=== PATIENT | female | born 1960 ===

== ENCOUNTER 2016-08-07 11:41 | Emergency (ER) | payer MEDICARE ==
[2016-08-07 11:46] VITALS: BMI 25.0
[2016-08-07 11:50] VITALS: TEMP 99.1
[2016-08-07] MEDS ORDERED: Albuterol-Ipratrop 3 mg / 0.5 (3 ml) UD IH STA (12:27)
[2016-08-07] MEDS ORDERED: Promethazine DM 6.25 mg-15 mg/5 ml Syrup PO STA (12:27)
--- NOTE | 2016-08-07 12:27 | ED PDOC ---
Arrival/HPI - General Historian: Patient - History of Present Illness Context: Home <Asif Damon P - Last Filed: 08/15/16 16:19> <Pat Dumont - Last Filed: 08/16/16 08:56> - General Chief Complaint: ENT Problem Time Seen by Provider: 08/07/16 12:26 - History of Present Illness Narrative History of Present Illness (Text): 08/07/16 12:26 This 56 yo female presents to this ED c/o sore throat, ear pain, and cough x 3 days. Denies sob, cp, abdominal pain, weakness, paresthesias, diplopia, dysarthria, dysphagia, or abnormal gait. 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 - HEENT Hx HEENT Disorder: Yes (READING GLASSES) Hx Cataracts: Yes (LASER SURGERY) Hx Deafness: Yes (L) - Renal Hx Renal Disorder: No - Endocrine/Metabolic Hx Endocrine Disorders: Yes (DM BORDERLINE) - Hematological/Oncological Hx Blood Disorders: Yes Hx Anemia: Yes - Musculoskeletal/Rheumatological Hx Musculoskeletal Disorders: No Hx Falls: No - Gastrointestinal Hx Gastrointestinal Disorders: No - Genitourinary/Gynecological Hx Genitourinary Disorders: Yes (PARTIAL HYSTERECTOMY,TUBAL LIGATION) - Psychiatric Hx Depression: Yes Hx Substance Use: No - Surgical History Hx Appendectomy: Yes Hx Cardiac Catheterization: Yes Hx Hysterectomy: Yes (PARTIAL) - Anesthesia Hx Anesthesia: Yes Hx Anesthesia Reactions: No Hx Malignant Hyperthermia: No - Suicidal Assessment Feels Threatened In Home Enviroment: No <Asif Damon - Last Filed: 08/15/16 16:19> Family/Social History - Physician Review Nursing Documentation Reviewed: Yes Family/Social History: No Known Family HX Smoking Status: Never Smoked Hx Alcohol Use: No Hx Substance Use: No Hx Substance Use Treatment: No <Asif Damon - Last Filed: 08/15/16 16:19> Allergies/Home Meds <Damon,Nahim P - Last Filed: 08/15/16 16:19> <Pat Dumont A - Last Filed: 08/16/16 08:56> Allergies/Adverse Reactions: Allergies Penicillins Allergy (Mild, Verified 08/07/16 11:46) ANGIOEDEMA;ITCHING Review of Systems - Review of Systems Constitutional: Normal. absent: Fatigue, Weight Change, Fevers Eyes: Normal ENT: Sore Throat, Other (ear pain) Respiratory: Cough. absent: SOB, Wheezing Cardiovascular: Normal. absent: Chest Pain, Palpitations Gastrointestinal: Normal. absent: Abdominal Pain, Diarrhea, Nausea, Vomiting Genitourinary Female: Normal. absent: Dysuria, Frequency Musculoskeletal: Normal Skin: Normal. absent: Rash Neurological: Normal. absent: Headache Endocrine: Normal Hemo/Lymphatic: Normal Psychiatric: Normal <Asif Damon P - Last Filed: 08/15/16 16:19> Physical Exam Temperature: Afebrile Blood Pressure: Normal Pulse: Regular Respiratory Rate: Normal Appearance: Positive for: Well-Appearing, Non-Toxic, Comfortable Pain Distress: None Mental Status: Positive for: Alert and Oriented X 3 - Systems Exam Head: Present: Atraumatic, Normocephalic Pupils: Present: PERRL Extroacular Muscles: Present: EOMI Conjunctiva: Present: Normal Ears: Present: Normal, NORMAL TM, Normal Canal. No: Erythema, TM Bulging, Fluid , TM Perf Mouth: Present: Moist Mucous Membranes Pharnyx: Present: Normal. No: ERYTHEMA, EXUDATE, TONSILS ENLARGED Nose (External): Present: Atraumatic Nose (Internal): Present: Normal Inspection Neck: Present: Normal Range of Motion, Trachea Midline. No: Meningeal Signs Respiratory/Chest: Present: Clear to Auscultation, Good Air Exchange. No: Respiratory Distress, Accessory Muscle Use, Decreased Breath Sounds, Rales, Retracting, Rhonchi, Tachypneic Cardiovascular: Present: Regular Rate and Rhythm, Normal S1, S2. No: Murmurs Abdomen: Present: Normal Bowel Sounds. No: Tenderness, Distention, Peritoneal Signs Back: Present: Normal Inspection. No: CVA Tenderness Upper Extremity: Present: Normal Inspection, NORMAL PULSES, Erythema. No: Cyanosis, Edema Lower Extremity: Present: Normal Inspection, Normal ROM, Neurovascularly Intact , Capillary Refill < 2 s. No: Edema, CALF TENDERNESS Neurological: Present: GCS=15, CN II-XII Intact, Speech Normal, Motor Func Grossly Intact, Normal Sensory Function, Normal Cerebellar Funct, Gait Normal, Memory Normal Skin: Present: Warm, Dry, Normal Color. No: Rashes Psychiatric: Present: Alert, Oriented x 3, Normal Insight, Normal Concentration <Damon,Nahim P - Last Filed: 08/15/16 16:19> Medical Decision Making Re-evaluation Time: 14:26 Reassessment Condition: Re-examined, Improved <Damon,Nahim P - Last Filed: 08/15/16 16:19> <Pat Dumont - Last Filed: 08/16/16 08:56> ED Course and Treatment: 08/07/16 13:00 On revaluation patient stated after DuoNeb, she developed difficulty speaking and generalized weakness. ER attending was called. Dr. Dumont evaluated patient. Patient stated symptoms has been improving. Code Stroke was initiated (Damon,Nahim P) 08/07/16 13:26 On my arrival, patient is complaining of difficulty speaking. She is able to phonate normally for moment and then switches between saying she can't speak and whispering and speaking normally. She has normal ROM and strength of arms, but then reports she has weakness of her legs but then has normal gait and is ambulating around the ED without issue. This presentation does not seem consistent with any organic neurologic condition- as tia would be intermittent but not show upper and lower division with normal gait and cva who show some objective deficit. When I am able to get the patient to take deep breaths and calm her breathing she is able to move all extremities. She has no facial droop and is able to speak normally during these times. Presentation seems more consistent with anxiety. FS:111. EKG shows NSR at 84bpm with normal intervals and no ST changes. CT head negative for hemorrhage or ischemia. I called PMD Dr. Farfan who is aware of patient. He reports that she has had extensive and recent negative workup for CVA and can be discharged with aspirin. Patient reports that she thinks that this was a side effect of the nebulizer and on reevaluation she reports that she feels better and wants to go home. (Pat Dumont) - Lab Interpretations Lab Results: 08/07/16 13:10 08/07/16 13:10 Lab Results 08/07/16 13:14: POC Glucose (mg/dL) 111 H 08/07/16 13:10: Sodium 142, Potassium 3.0 L, Chloride 104, Carbon Dioxide 28, Anion Gap 13, BUN 16, Creatinine 0.8, Est GFR ( Amer) > 60, Est GFR (Non- Af Amer) > 60, Random Glucose 106, Calcium 9.3, Total Bilirubin 0.7, AST 34, ALT 43, Alkaline Phosphatase 157 H, Lactate Dehydrogenase 467, Total Creatine Kinase 167, Troponin I < 0.01, Total Protein 8.8 H, Albumin 4.7, Globulin 4.0, Albumin/Globulin Ratio 1.2, Triglycerides 229 H, Cholesterol 156, LDL Cholesterol Direct 77, HDL Cholesterol 40 08/07/16 13:10: PT 10.5, INR 0.97, APTT 27.7 08/07/16 13:10: WBC 12.4 H D, RBC 4.61, Hgb 13.8, Hct 39.6, MCV 85.9, MCH 29.9, MCHC 34.8, RDW 12.9, Plt Count 216, MPV 10.3, Gran % 51.8, Lymph % (Auto) 38.6 H , [place] % (Auto) 5.8, Eos % (Auto) 3.6, Baso % (Auto) 0.2, Gran # 6.38, Lymph # 4.8 H, [place] # 0.7 H, Eos # 0.5, Baso # 0.03 08/07/16 13:00: Urine Color Yellow, Urine Appearance Clear, Urine pH 7.5, Ur Specific [place] 1.010, Urine Protein Negative, Urine Glucose (UA) Negative, Urine Ketones Negative, Urine Blood Small H, Urine Nitrate Negative, Urine Bilirubin Negative, Urine Urobilinogen 0.2, Ur Leukocyte Esterase Negative, Urine RBC 0 - 2, Urine WBC 0 - 2, Ur Epithelial Cells 6 - 8, Urine Bacteria Small - RAD Interpretation Narrative RAD Interpretations (Text): 08/07/16 14:26 Accession No. : [id number] Patient Name / ID : NIMO BALBUENA / [id number] Exam Date : 08/07/2016 12:24:10 ( Approved ) Study Comment : Sex / Age : F / 56Y Creator : Misael Parson MD Dictator : Misael Parson MD Stereo Equipment Installer : Stockroom Keeper : Misael Parson MD Approver2 : Report Date : 08/07/2016 13:37:11 My Comment : HISTORY: cough COMPARISON: No prior. TECHNIQUE: Chest PA and lateral FINDINGS: LUNGS: No active pulmonary disease. PLEURA: No significant pleural effusion identified. No pneumothorax apparent. CARDIOVASCULAR: Normal. OSSEOUS STRUCTURES: There appears to be a mild pectus excavatum minor multilevel degenerative spondylosis of the thoracic spine VISUALIZED UPPER ABDOMEN: Normal. OTHER FINDINGS: None. IMPRESSION: No active disease. (Asif Damon) Radiology Orders: 08/07/16 12:28 CHEST TWO VIEWS (PA/LAT) [RAD] Stat 08/07/16 13:06 HEAD W/O (CODE STROKE) [CT] Stat - Medication Orders Current Medication Orders: Discontinued Medications Albuterol/Ipratropium (Duoneb 3 Mg/0.5 Mg (3 Ml) Ud) 3 ml IH STAT STA Stop: 08/07/16 12:28 Last Admin: 08/07/16 12:32 Dose: 3 ml Aspirin (Aspirin Chewable) 324 mg PO STAT STA Stop: 08/07/16 13:29 Last Admin: 08/07/16 13:41 Dose: 324 mg Potassium Chloride (Potassium Chloride Oral Soln) 60 meq PO STAT STA Stop: 08/07/16 14:25 Last Admin: 08/07/16 15:00 Dose: 60 meq Promethazine HCl/Dextromethorphan (Phenergan Dm Syrup) 5 ml PO STAT STA Stop: 08/07/16 12:28 Last Admin: 08/07/16 12:38 Dose: 5 ml NIHSS Scale ([place]) Time Performed: 13:25 - How Severe is the Stoke Baseline Level of Consciousness: 0=Alert LOC to Questions: 0=Both comments correct LOC to commands: 0=Obeys both correctly Best Gaze: 0=Normal Visual: 0=No visual loss Facial: 0=Normal Motor Arm - Left: 0=No drift Motor Arm - Right: 0=No drift Motor Leg - Left: 0=No drift Motor Leg - Right: 0=No drift Limb Ataxia: 0=Absent Sensory: 0=Normal Best Language: 0=No aphasia Dysarthia: 0=Normal articulation Extinction & Inattention (Neglect): 0=Normal, no object Score: 0 Risk Level: No Stroke Risk <Pat Dumont - Last Filed: 08/16/16 08:56> rTPA Inclusion/Exclusion - Refusal of Treatment Patient Refused Treatment: No - Inclusion Criteria for Altepase Patient is 18 years or Older: Yes The Clinical Diagnosis of Ischemic Stroke That is Causing a Potentially Disabling Neurological Deficit: No Time of Onset is Well Established to be Less Than 270 Minute Before Treatment Would Begin: Yes Risk/Benefit Discussed With Patient/Family Member Present: No <Pat Dumont - Last Filed: 08/16/16 08:56> Disposition/Present on Arrival - Present on Arrival Any Indicators Present on Arrival: No History of DVT/PE: No History of Uncontrolled Diabetes: No Urinary Catheter: No History of Decub. Ulcer: No History Surgical Site Infection Following: None - Disposition Have Diagnosis and Disposition been Completed?: Yes Disposition Time: 14:27 Patient Plan: Discharge <Asif Damon - Last Filed: 08/15/16 16:19> <Pat Dumont - Last Filed: 08/16/16 08:56> - Disposition Diagnosis: Sore throat, Cough Disposition: HOME/ ROUTINE Condition: IMPROVED Discharge Instructions (ExitCare): Upper Respiratory Infection (ED) Additional Instructions: Call private doctor for follow up visit ion 1-2 days. Take medication as instructed. Return to emergency if symptoms worsen. Prescriptions: Promethazine DM [Dextromethorphan/Promethazine 15 MG/5 Ml-6.25] 5 ml PO Q6H PRN #60 ml PRN Reason: Cough Referrals: Blair Farfan, [Primary Care Provider] - Follow up with primary Forms: WORK NOTE
[2016-08-07 13:17] LABS: ADD MANUAL DIFF? NO
[2016-08-07 13:23] LABS: BASO # 0.03 K/mm3 (0.0-2.0); BASO % 0.2 % (0.0-3.0); EOS # 0.5 (0.0-0.7); EOS % 3.6 % (1.5-5.0); GRAN # 6.38 (1.4-6.5); GRAN % 51.8 % (50.0-68.0); HEMATOCRIT 39.6 % (36.0-48.0); LYMPH # 4.8 (1.2-3.4); LYMPH % 38.6 % (22.0-35.0); MEAN CELL VOLUME 85.9 fL (80.0-105.0); MEAN CORPUSCULAR HEMOGLOBIN 29.9 pg (25.0-35.0); MEAN CORPUSCULAR HGB CONC 34.8 g/dl (31.0-37.0); MEAN PLATELET VOLUME 10.3 fl (7.0-11.0); MONO # 0.7 (0.1-0.6); MONO % 5.8 % (1.0-6.0); PLATELET COUNT 216 10^3/uL (120.0-450.0); RED CELL DISTRIBUTION WIDTH 12.9 % (11.5-14.5); WHITE BLOOD COUNT 12.4 10^3/ul (4.5-11.0)
--- NOTE | 2016-08-07 13:26 | CT ---
PROCEDURE: CT HEAD WITHOUT CONTRAST. HISTORY: dysarthria, facial numbness COMPARISON: 05/26/2015 TECHNIQUE: Axial computed tomography images were obtained through the head/brain without intravenous contrast. Radiation dose: Total exam DLP = 733 mGy-cm. This CT exam was performed using one or more of the following dose reduction techniques: Automated exposure control, adjustment of the mA and/or kV according to patient size, and/or use of iterative reconstruction technique. FINDINGS: HEMORRHAGE: No intracranial hemorrhage. BRAIN: No mass effect or edema. No atrophy or chronic microvascular ischemic changes. VENTRICLES: Unremarkable. No hydrocephalus. CALVARIUM: Unremarkable. PARANASAL SINUSES: Unremarkable as visualized. No significant inflammatory changes. MASTOID AIR CELLS: Unremarkable as visualized. No inflammatory changes. OTHER FINDINGS: None. IMPRESSION: No acute findings
[2016-08-07 13:32] LABS: INR 0.97 (0.93-1.08); PARTIAL THROMBOPLASTIN TIME 27.7 Seconds (23.7-30.8)
--- NOTE | 2016-08-07 13:38 | RAD ---
HISTORY: cough COMPARISON: No prior. TECHNIQUE: Chest PA and lateral FINDINGS: LUNGS: No active pulmonary disease. PLEURA: No significant pleural effusion identified. No pneumothorax apparent. CARDIOVASCULAR: Normal. OSSEOUS STRUCTURES: There appears to be a mild pectus excavatum minor multilevel degenerative spondylosis of the thoracic spine VISUALIZED UPPER ABDOMEN: Normal. OTHER FINDINGS: None. IMPRESSION: No active disease.
[2016-08-07 13:41] LABS: ALB/GLOB RATIO 1.2 (1.1-1.8); ALKALINE PHOSPHATASE 157 U/L (38-133); ALT/SGPT 43 U/L (7-56); AST/SGOT 34 U/L (15-39); BILIRUBIN,TOTAL 0.7 mg/dL (0.2-1.3); BLOOD UREA NITROGEN 16 mg/dL (7-21); CALCIUM 9.3 mg/dL (8.4-10.5); CARBON DIOXIDE 28 mmol/L (21-33); CHLORIDE 104 mmol/L (98-107); CHOLESTEROL 156 mg/dL (130-200); GFR AFRICAN-AMERICAN > 60; GLUCOSE,RANDOM 106 mg/dL (70-110); SODIUM 142 mmol/L (132-148); TOTAL PROTEIN 8.8 g/dL (5.8-8.3)
[2016-08-07 13:46] LABS: PH,URINE 7.5 (4.7-8.0); URINE BILIRUBIN NEGATIVE (NEGATIVE); URINE BLOOD SMALL (NEGATIVE); URINE GLUCOSE (UA) NEGATIVE (NEGATIVE); URINE KETONE NEGATIVE (NEGATIVE); URINE LEUKOCYTE ESTERASE NEGATIVE Leu/uL (NEGATIVE); URINE PROTEIN NEGATIVE mg/dL (<30 mg/dL); URINE UROBILINOGEN 0.2 E.U./dL (<1 E.U./dL)
[2016-08-07 13:49] LABS: URINE APPEARANCE CLEAR (CLEAR); URINE COLOR YELLOW (YELLOW)
[2016-08-07 13:53] LABS: TROPONIN I < 0.01 ng/mL
[2016-08-07 14:12] LABS: URINE BACTERIA SMALL (NEG); URINE RBC 0 - 2 /hpf (0-2); URINE WBC 0 - 2 /hpf (0-6)
[2016-08-07] MEDS ORDERED: Potassium Chloride 20 mEq/15 ml LIQ UD PO STA (14:24)
[2016-08-07 14:50] VITALS: BP 123/80; PULSE 83; RESP 17; O2SAT 99
--- NOTE | 2016-08-07 20:17 | CARD ---
APPROVED REPORT EKG Measurement Heart [id number] <Conclusion> Normal sinus rhythm Normal ECG
== END 2016-08-07 15:07 | disposition home or self-care (01) ==
LOC: ED 11:41
DX: J02.9 Acute pharyngitis, unspecified (principal); R05 Cough; I10 Essential (primary) hypertension; J45.909 Unspecified asthma, uncomplicated; Z87.01 Personal history of pneumonia (recurrent)

== ENCOUNTER 2018-04-03 10:48 | Outpatient (CLI) | payer MEDICARE | END 2018-04-03 10:49 | disposition home or self-care (01) | LOC: RAD 10:48 ==

== ENCOUNTER 2018-06-07 11:40 | Observation (INO) | payer MEDICARE ==
[2018-06-07 11:42] VITALS: BMI 28.3
[2018-06-07] MEDS ORDERED: Sodium Chloride 0.9% 1,000 ML IV SCH ×2 (12:00→17:13)
--- NOTE | 2018-06-07 12:00 | EDPD ---
HPI Stroke - General Time Seen by Provider: 06/07/18 11:59 Chief Complaint: Dizziness/Lightheaded Historian: Patient - History of Present Illness Narrative History of Present Illness (Free Text): 06/07/18 12:00 A 57 year old female, whose past medical history includes TIA, presents to the emergency department complaining of right face and right hand numbness occurring 20 minutes prior to arrival. Patient reports associated generalized weakness, change in vision, and slurred speech. Patient notes she is compliant with outpatient medication. Patient denies any fever, chest pain, shortness of breath, or any other complaints. PMD: Dr. Farfan Onset:: Hours (20 minutes) Timing: Constant Context: Sitting Associated Symptoms: Visual - Location Location: Speech rTPA Inclusion/Exclusion - Refusal of Treatment Patient Refused Treatment: No - Inclusion Criteria for Altepase Patient is 18 years or Older: Yes The Clinical Diagnosis of Ischemic Stroke That is Causing a Potentially Disabling Neurological Deficit: No Time of Onset is Well Established to be Less Than 270 Minute Before Treatment Would Begin: Yes Risk/Benefit Discussed With Patient/Family Member Present: No Past Medical History - Provider Review Nursing Documentation Reviewed: Yes - Infectious Disease Hx of Infectious Diseases: None - Cardiac Hx Hypertension: Yes - Pulmonary Hx Respiratory Disorders: Yes Hx Asthma: Yes Hx Bronchitis: Yes Hx Pneumonia: Yes - Neurological Hx Neurological Disorder: Yes (NEUROPATHY) Hx Dizziness: Yes Other/Comment: 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 - HEENT Hx HEENT Disorder: Yes (READING GLASSES) Hx Cataracts: Yes (LASER SURGERY) Hx Deafness: Yes (L) - Renal Hx Renal Disorder: No - Endocrine/Metabolic Hx Endocrine Disorders: Yes (DM BORDERLINE) - Hematological/Oncological Hx Blood Disorders: Yes Hx Anemia: Yes - Musculoskeletal/Rheumatological Hx Musculoskeletal Disorders: No Hx Falls: No - Gastrointestinal Hx Gastrointestinal Disorders: No - Genitourinary/Gynecological Hx Genitourinary Disorders: Yes (PARTIAL HYSTERECTOMY,TUBAL LIGATION) - Psychiatric Hx Depression: Yes Hx Substance Use: No - Surgical History Hx Appendectomy: Yes Hx Cardiac Catheterization: Yes Hx Hysterectomy: Yes (PARTIAL) - Anesthesia Hx Anesthesia: Yes Hx Anesthesia Reactions: No Hx Malignant Hyperthermia: No - Suicidal Assessment Feels Threatened In Home Enviroment: No Family/Social History - Review Nursing documentation reviewed.: Yes Allergies/Home Meds Allergies/Adverse Reactions: Allergies Penicillins Allergy (Mild, Verified 08/07/16 11:46) ANGIOEDEMA;ITCHING Review of Systems - Physician Review All systems were reviewed & negative as marked: Yes - Review of Systems Constitutional: absent: Fevers Eyes: Vision Changes Respiratory: absent: SOB Cardiovascular: absent: Chest Pain Neurological: Speech Changes (slurred speech), Other (right hand anad right face numbness; generalized weakness) ED Stroke Physical Exam Vital Signs Reviewed: Yes Vital Signs Temp Pulse Resp BP Pulse Ox 06/07/18 11:48 98.3 F 77 18 133/92 H 98 Temperature: Afebrile Blood Pressure: Hypertensive Pulse: Regular Respiratory Rate: Normal Pain Distress: None Mental Status: Positive for: Alert and Oriented X 3 - Systems Exam Head: Present: Atraumatic, Normocephalic Pupils: Present: PERRL Extroacular Muscles: Present: EOMI Conjunctiva: Present: Normal Neck: Present: Normal Range of Motion Respiratory/Chest: Present: Clear to Auscultation, Good Air Exchange. No: Respiratory Distress, Accessory Muscle Use Cardiovascular: Present: Regular Rate and Rhythm, Normal S1, S2. No: Murmurs Abdomen: Present: Normal Bowel Sounds. No: Tenderness, Distention, Peritoneal Signs Genitourinary/Pelvic Exam: Present: NI. No: C, E Back: Present: GCS, CN, SP Upper Extremity: Present: Normal ROM Lower Extremity: Present: Normal ROM Neurologic: Present: GCS=15, CN II-XII Intact, Speech Normal. No: Normal Sensory Function (decreased sensory to right face and right hand (as per patient)), Other (no slurred speech) Skin: Present: Warm, Dry, Normal Color. No: Rashes Lymphatic: Present: OX3, NI, NC Psychiatric: Present: Alert, Oriented x 3, Normal Insight, Normal Concentration Medical Decision Making ED Course and Treatment: 06/07/18 12:00 Impression: 57 year old female presenting to the emergency room complaining of right face and right hand numbness. Plan: -- Type and screen -- EKG -- Labs -- Stroke team consult -- Neurology consult -- MRI of brain -- Aspirin -- Potassium chloride -- IV fluids -- Reassess and disposition Prior Visits: Notes and results from previous visits were reviewed. Progress Notes: 06/07/18 11:58 CODE STROKE called. 06/07/18 12:[address] Cheatham who requested patient have a CTA, MRI, and request for admission. 06/07/18 12:04 EKG: Ordered, reviewed, and independently interpreted the EKG. Rate : 65 BPM Rhythm : SR Interpretation : 1st degree AV block, normal axis. 06/07/18 13:[address] Farfan who accepts patient under his service in telemetry. 06/07/18 13:34 Procedure: Head/Neck CTA Dictator: Orion Sosa Impression: Unremarkable CT angiography of the brain. Procedure: Head CT Dictator: Orion Sosa Impression: No acute intracranial findings. Procedure: Chest X-ray Dictator: Orion Sosa Impression: No active disease. - Critical Care Critical Care Minutes: 60 minutes - Scribe Statement The provider has reviewed the documentation as recorded by the Scribe Verónica Flores All medical record entries made by the Scribe were at my direction and personally dictated by me. I have reviewed the chart and agree that the record accurately reflects my personal performance of the history, physical exam, medical decision making, and the department course for this patient. I have also personally directed, reviewed, and agree with the discharge instructions and d isposition. NIHSS Scale ([place]) Time Performed: 11:58 - How Severe is the Stoke Baseline Level of Consciousness: 0=Alert LOC to Questions: 0=Both comments correct LOC to commands: 0=Obeys both correctly Best Gaze: 0=Normal Visual: 0=No visual loss Facial: 0=Normal Motor Arm - Left: 0=No drift Motor Arm - Right: 0=No drift Motor Leg - Left: 0=No drift Motor Leg - Right: 0=No drift Limb Ataxia: 0=Absent Sensory: 1=Mild to moderate loss Best Language: 0=No aphasia Dysarthia: 0=Normal articulation Extinction & Inattention (Neglect): 0=Normal, no object Score: 1 Risk Level: Minor Stroke Risk Disposition/Present on Arrival - Present on Arrival Any Indicators Present on Arrival: No History of DVT/PE: No History of Uncontrolled Diabetes: No Urinary Catheter: No History of Decub. Ulcer: No History Surgical Site Infection Following: None - Disposition Have Diagnosis and Disposition been Completed?: Yes Diagnosis: TIA (transient ischemic attack) Disposition: HOSPITALIZED Disposition Time: 13:25 Condition: GUARDED
[2018-06-07] MEDS ORDERED: Iohexol 350 MG/100 ML VIAL ONE (12:06)
[2018-06-07 12:15] LABS: BASO # 0.02 K/mm3 (0.0-2.0); BASO % 0.3 % (0.0-3.0); EOS # 0.2 (0.0-0.7); EOS % 2.8 % (1.5-5.0); HEMOGLOBIN 13.7 g/dL (12.0-16.0); LYMPH # 3.2 (1.2-3.4); LYMPH % 39.7 % (22.0-35.0); MEAN CELL VOLUME 86.8 fl (80.0-105.0); MEAN CORPUSCULAR HEMOGLOBIN 29.1 pg (25.0-35.0); MEAN CORPUSCULAR HGB CONC 33.5 g/dl (31.0-37.0); MEAN PLATELET VOLUME 10.3 fl (7.0-11.0); MONO # 0.7 (0.1-0.6); MONO % 8.5 % (1.0-6.0); RBC 4.71 10^6/uL (3.5-6.1); RED CELL DISTRIBUTION WIDTH 13.1 % (11.5-14.5)
[2018-06-07 12:21] LABS: ALB/GLOB RATIO 1.1 (1.1-1.8); ALBUMIN 4.4 g/dL (3.0-4.8); ALT/SGPT 28 U/L (7-56); AST/SGOT 30 U/L (14-36); BLOOD UREA NITROGEN 12 mg/dL (7-21); CALCIUM 9.2 mg/dL (8.4-10.5); GFR NON-AFRICAN AMERICAN > 60; HDL CHOLESTEROL 31 mg/dL (29-60); INR 1.04; PARTIAL THROMBOPLASTIN TIME 29.5 Seconds (26.9-38.3); PROTHROMBIN TIME 11.7 SECONDS (9.4-12.5)
--- NOTE | 2018-06-07 12:24 | CT ---
Date of service: 06/07/2018 PROCEDURE: CT HEAD WITHOUT CONTRAST. HISTORY: Code Stroke COMPARISON: 08/07/2016 TECHNIQUE: Axial computed tomography images were obtained through the head/brain without intravenous contrast. Radiation dose: Total exam DLP = 941.67 mGy-cm. This CT exam was performed using one or more of the following dose reduction techniques: Automated exposure control, adjustment of the mA and/or kV according to patient size, and/or use of iterative reconstruction technique. FINDINGS: HEMORRHAGE: No intracranial hemorrhage. BRAIN: No mass effect or edema. No atrophy or chronic microvascular ischemic changes. VENTRICLES: Unremarkable. No hydrocephalus. CALVARIUM: Unremarkable. PARANASAL SINUSES: Unremarkable as visualized. No significant inflammatory changes. MASTOID AIR CELLS: Unremarkable as visualized. No inflammatory changes. OTHER FINDINGS: None. IMPRESSION: No acute intracranial findings
[2018-06-07 12:31] LABS: LDL CHOLESTEROL 78 mg/dL (0-129)
[2018-06-07 12:34] LABS: TROPONIN I < 0.01 ng/mL
--- NOTE | 2018-06-07 13:10 | RAD ---
Date of service: 06/07/2018 HISTORY: Code Stroke COMPARISON: 04/03/2018 FINDINGS: LUNGS: No active pulmonary disease. PLEURA: No significant pleural effusion identified, no pneumothorax apparent. CARDIOVASCULAR: No aortic atherosclerotic calcification present. Normal cardiac size. No pulmonary vascular congestion. OSSEOUS STRUCTURES: No significant abnormalities. VISUALIZED UPPER ABDOMEN: Normal. OTHER FINDINGS: None. IMPRESSION: No active disease.
--- NOTE | 2018-06-07 13:15 | CT ---
Date of service: 06/07/2018 PROCEDURE: CT Angiography of the neck with contrast HISTORY: code stroke COMPARISON: None. TECHNIQUE: Contiguous axial images of the neck were obtained from the level of the skull-base to the superior mediastinum in the arteriographic phase of enhancement. Coronal and sagittal reformats or also generated. IV contrast dose: Radiation dose: Total exam DLP = 609.86 mGy-cm. This CT exam was performed using one or more of the following dose reduction techniques: Automated exposure control, adjustment of the mA and/or kV according to patient size, and/or use of iterative reconstruction technique. FINDINGS: RIGHT CAROTID ARTERIES: Common Carotid Artery: Normal. Carotid Bifurcation: Normal. Internal Carotid Artery:Normal. External Carotid Artery (proximal branches): Normal. LEFT CAROTID ARTERIES: Common Carotid Artery: Normal. Carotid Bifurcation: Normal. Internal Carotid Artery:Normal. External Carotid Artery (proximal branches): Normal. VERTEBRAL ARTERIES: Right Vertebral Artery: Normal. Left Vertebral Artery: Normal. OTHER FINDINGS: no aortic atherosclerotic calcification or mural plaque present. IMPRESSION: Normal CT Angiography of the neck. PROCEDURE: CT Angiography of the Brain. HISTORY: code stroke COMPARISON: None available. TECHNIQUE: CT angiography of the intracranial arteries was performed. Coronal and sagittal maximum intensity projection reformated images were generated. Radiation dose: Total exam DLP = 609.86 mGy-cm. This CT exam was performed using one or more of the following dose reduction techniques: Automated exposure control, adjustment of the mA and/or kV according to patient size, and/or use of iterative reconstruction technique. FINDINGS: INTERNAL CEREBRAL ARTERIES: Unremarkable. The skull base, petrous, cavernous and supraclinoid segments are bilaterally widely patent. ANTERIOR CEREBRAL ARTERIES: Unremarkable. A1 and A2 segments are widely patent. Smaller distal branches unremarkable, as visualized. MIDDLE CEREBRAL ARTERIES: Unremarkable. M1 and M2 segments are widely patent. Perisylvian branches grossly symmetric. POSTERIOR CIRCULATION: Basilar Artery: Unremarkable. Distal Vertebral Arteries: Unremarkable. Posterior Cerebral Arteries: Unremarkable. Posterior Inferior Cerebellar Arteries: Unremarkable. ANEURYSM/ VASCULAR MALFORMATIONS: None. OTHER FINDINGS: None. IMPRESSION: Unremarkable CT Angiography of the Brain.
--- NOTE | 2018-06-07 13:26 | CP.PCM.PCO ---
Physician Communication Note - Physician Communication Note Physician Communication Note: Called for code stroke for patietn with numbness, not TPA candidate. NIH 2
[2018-06-07] MEDS ORDERED: Potassium Chloride 20 mEq ER Tab PO STA (13:29)
[2018-06-07 15:12] LABS: URINE APPEARANCE CLEAR (CLEAR); URINE BILIRUBIN NEGATIVE (NEGATIVE); URINE BLOOD TRACE-INTACT (NEGATIVE); URINE COLOR LIGHT YELLOW (YELLOW); URINE GLUCOSE (UA) NEGATIVE (NEGATIVE); URINE LEUKOCYTE ESTERASE NEGATIVE Leu/uL (NEGATIVE); URINE PROTEIN NEGATIVE mg/dL (<30 mg/dL); URINE UROBILINOGEN 0.2 E.U./dL (<1 E.U./dL)
[2018-06-07 15:18] LABS: URINE RBC 0 - 2 /hpf (0-2)
--- NOTE | 2018-06-07 17:24 | MRI ---
Date of service: 06/07/2018 PROCEDURE: MRI BRAIN WITHOUT CONTRAST HISTORY: right facial/hand numbness COMPARISON: Comparison is made to the previous study dated 05/26/2015 TECHNIQUE: Multiplanar, multisequence MR images of the brain were obtained without intravenous contrast enhancement. FINDINGS: HEMORRHAGE: None DWI: No evidence of an acute or early subacute infarction. BRAIN PARENCHYMA: No mass effect or edema. No atrophy or chronic microvascular ischemic changes. VENTRICLES: Unremarkable. No hydrocephalus. CRANIUM: Unremarkable. ORBITS: Grossly unremarkable. PARANASAL SINUSES/MASTOIDS: Clear VASCULAR SYSTEM: Skull base flow voids intact. OTHER FINDINGS: None. IMPRESSION: No evidence of acute intracranial hemorrhage or acute infarction. No evidence of mass lesion mass effect or midline shift.
--- NOTE | 2018-06-07 22:18 | CARD ---
APPROVED REPORT Date of service: 06/07/2018 EKG Measurement Heart [id number] ID [id number] <Conclusion> Normal sinus rhythm Possible Left atrial enlargement Borderline ECG
--- NOTE | 2018-06-07 22:38 | HP ---
DATE OF EXAM: 06/07/2018 HISTORY OF PRESENT ILLNESS: She is a 57-year-old white female who I know very well from the office who presented to me on the phone with the right hand numbness, face numbness, weakness, change in vision, slurred speech, and I told her to go to the emergency room. PAST MEDICAL HISTORY: She has a past medical history of TIAs, hypertension, high cholesterol, neuropathy, and dizziness. 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 She cataracts. 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 She had a partial hysterectomy and tubal ligation. She has been depressed, appendectomy, and cardiac catheterization. ALLERGIES: SHE IS ALLERGIC TO PENICILLINS AND NOW IV CAT SCAN DYE, SHE HAS A REACTION TODAY. REVIEW OF SYSTEMS: No fever. She had vision changes. She had numbness and tingling in the face. She was dizzy. No chest pain or shortness of breath. She has slurred speech, right hand and right face numbness and generalized weakness. No skin issues that she knows of. PHYSICAL EXAMINATION: VITAL SIGNS: 98.3 temperature, 77 pulse, 18 respiratory rate, 133/92 blood pressure, and 98% O2 sat on room air. GENERAL: Alert and oriented x3. HEENT: Head is atraumatic and normocephalic. Extraocular muscles are intact. Pupils are equal and reactive to light. Throat is moist. NECK: Supple. HEART: Regular rate. Normal S1 and S2. LUNGS: Clear to auscultation bilaterally. No wheezes or rhonchi or rales. ABDOMEN: Soft and nontender. Positive bowel sounds. No guarding. No rebound. No CVA tenderness. EXTREMITIES: No edema. She can move all four extremities well. Sensation is improved. NEUROLOGIC: Cranial nerves II through XII grossly intact. GCS is 15. Normal sensation, equal strength. The face numbness and tingling has resolved. No slurred speech at this time that resolved. Alert and oriented x3. SKIN: Warm and dry. No apparent rashes or ulcers. LYMPHS: Thyroid midline. No palpable appreciable lymphadenopathy. LABORATORY DATA: She had multiple tests done. Chest x-ray, no active disease. Head CT, no acute pathology. Head and neck CTA was normal. Waiting for an MRI of the brain . She has an urine, which has trace blood. She has a 142 sodium, potassium 3.2, and I am going to replaced the potassium, BUN 12, creatinine 0.7, GFR is greater than 60, sugar is 103, calcium is 9.2, hemoglobin A1c is 6.2, and total bili is 0.4. AST is 30, ALT is 28, and alk phos 138. Troponin I is less than 0.01. Total protein is 8.5, albumin is 4.4, globulin is 4.2, and triglycerides 316, kelsey high that is new for her. Cholesterol was 179. INR is 1.04. White count is 8, hemoglobin 13.7, hematocrit 40.9, and platelets 213. ASSESSMENT AND PLAN: She is here with numbness and tingling, slurred speech, probably transient ischemic attack. She has Neuro consult. She has elevated blood pressure, low potassium, high triglycerides, we will address all those things, and physical therapy. She will be on observation. Hopefully if she does well, we are going to discharge her tomorrow. Blair Farfan DO [facility]
--- NOTE | 2018-06-07 23:18 | CON ---
DATE: 06/07/2018 HISTORY OF PRESENT ILLNESS: This is a 57-year-old female with the past medical history of TIA, came in with the complaint of right facial numbness and numbness of the right hand, and the patient had similar symptoms, two to three times before and also generalized weakness, and called to evaluate the patient. PAST MEDICAL HISTORY: Multiple TIAs. ALLERGIES: PENICILLIN. PHYSICAL EXAMINATION VITAL SIGNS: Blood pressure 133/92. HEENT: Normocephalic and atraumatic. NECK: Supple. NEURO: Awake, alert, oriented x3. No aphasia. Cranial nerves II to XII were tested. Pupils reactive. EOM intact. Visual field full. No facial asymmetry. Tongue midline. Motor examination; moved all the extremities equally. Tone normal. Deep tendon reflexes 1+. Both plantars are downgoing. Sensory appears intact. Cerebellar gait normal. MRI of the head was done which was normal. ASSESSMENT AND PLAN: Continue aspirin. We will follow up. Florian Degroot MD
[2018-06-07 23:34] VITALS: RESP 18; O2SAT 97
[2018-06-08 08:04] LABS: HEMOGLOBIN 12.1 g/dL (12.0-16.0); MEAN CELL VOLUME 89.5 fl (80.0-105.0); MEAN CORPUSCULAR HEMOGLOBIN 28.3 pg (25.0-35.0); MEAN CORPUSCULAR HGB CONC 31.6 g/dl (31.0-37.0); MEAN PLATELET VOLUME 10.4 fl (7.0-11.0); RBC 4.28 10^6/uL (3.5-6.1); RED CELL DISTRIBUTION WIDTH 13.3 % (11.5-14.5); WHITE BLOOD COUNT 6.1 10^3/uL (4.5-11.0)
[2018-06-08 09:04] LABS: ALB/GLOB RATIO 1.1 (1.1-1.8); ALBUMIN 3.8 g/dL (3.0-4.8); ALT/SGPT 23 U/L (7-56); AST/SGOT 25 U/L (14-36); BLOOD UREA NITROGEN 12 mg/dL (7-21); CALCIUM 8.4 mg/dL (8.4-10.5); GFR NON-AFRICAN AMERICAN > 60
[2018-06-08 12:14] VITALS: BP 119/74; PULSE 57; TEMP 97.7
--- NOTE | 2018-06-08 23:41 | DS ---
HISTORY OF PRESENT ILLNESS: She came in with numbness and tingling on her face and her hands, it is improved. She is feeling good this morning. She looks better. She feels better. No other issues. She is on Ecotrin, Lipitor, Lopressor, Norvasc, IV fluids, and I added TriCor for the elevated triglycerides. My plan is to discharge her after lunch, the symptoms have definitely resolved. PHYSICAL EXAMINATION: VITAL SIGNS: She has a 97.6 temperature, 78 pulse, 113/74 blood pressure, and 18 respiratory rate. HEENT: Head is atraumatic and normocephalic. Her face looks very symmetrical, no more issues Tongue midline. She is smiling. Better spirits. NECK: Supple. No JVD. HEART: Regular rate. LUNGS: Clear to auscultation. ABDOMEN: Soft. EXTREMITIES: No edema. She is able to walk well. No issues. No numbness or tingling at this time. LABORATORY DATA: White count 6.1, hemoglobin 12.1, hematocrit 38.3 with 209 platelets. INR is 1.04. Sodium 140, potassium 3.5, better than yesterday, I gave another potassium today, BUN 12, creatinine 0.7, GFR is greater than 60, sugar is 109, calcium is 8.4, and total bili is 0.4. AST is 25, ALT is 23, alk phos 110, and total protein 7.4. Albumin is 3.8. TSH is 3.16. Urine is clean. She was seen by Neurology who said to continue the aspirin. MRI of the brain was fine. The CT head and neck was fine. The head CT was okay. ASSESSMENT AND PLAN: She will be discharged today after lunch. She will be on aspirin. Her potassium was replaced. She is on Lipitor, Lopressor, Norvasc and TriCor. She will see me in the office next week. Coty Rodriguez who came in with transient ischemic attack. Blair Farfan DO [facility]
== END 2018-06-08 13:47 | disposition home or self-care (01) ==
LOC: ED 11:40 → ERH 13:30 → 2RSO 14:34
PROVIDERS: ADMIT Family Medicine; ATTEND Family Medicine
DX: G45.9 Transient cerebral ischemic attack, unspecified (principal); E78.00 Pure hypercholesterolemia, unspecified; E78.1 Pure hyperglyceridemia; E87.6 Hypokalemia; H91.92 Unspecified hearing loss, left ear; I10 Essential (primary) hypertension; J45.909 Unspecified asthma, uncomplicated; Z79.82 Long term (current) use of aspirin; Z87.01 Personal history of pneumonia (recurrent); Z90.49 Acquired absence of other specified parts of digestive tract; Z90.711 Acquired absence of uterus with remaining cervical stump; E11.40 Type 2 diabetes mellitus with diabetic neuropathy, unspecified; E11.36 Type 2 diabetes mellitus with diabetic cataract; Z88.0 Allergy status to penicillin; Z91.041 Radiographic dye allergy status
CPT/HCPCS: 36415; 70450; 70496; 70498; 70551; 71045; 80053; 80061; 81001; 82948; 83036; 84443; 84484; 85025; 85027; 85610; 85730; 87086; 93005; 99285; G0378; J7030; Q9967